=== PATIENT | female | born 1950 | race Caucasian/White ===

== ENCOUNTER → 2018-06-04 | Outpatient (CLI) | payer MEDICARE, OTHER ==
[2015-08-27 14:25] VITALS: BMI 29.9
[~2018-06-04] MED LIST: ACE325 PO; ARTHRITIS MED; ASPI-1121 PO; GABA-547 PO; INSU100I28; INSU100I28 SQ; LEVI SC; LEVO75TA73 PO
--- NOTE | 2018-06-04 18:09 | RADIOLOGY IMAGING REPORT ---
FACILITY: [facility] - [place], [place] PATIENT NAME: Helene Robles : 1950 MR: [id number] V: [id number] EXAM DATE: ORDERING PHYSICIAN: STEVE AIKEN TECHNOLOGIST: Location: [facility] Patient: Helene Robles : 1950 Visit/Account:[id number] Date of Sevice: 06/04/2018 MRI right shoulder Indication: Right shoulder pain after fall. Comparison: None available. Technique: Multiplanar multisequence MR images were obtained through the right shoulder. Findings: Rotator cuff: Massive rotator cuff tear with complete tearing supraspinatus and infraspinous with medial retraction to the acromioclavicular joint. Significant fatty atrophy supraspinatus and infraspinatus. Overall, there is evidence of approximately 3.8 cm of medial retraction. Teres minor is intact. There is moder ate partial tearing superior fibers of the subscapularis as well. Biceps tendon: Biceps is not seen within the superior aspect of the bicipital groove nor is the intra-articular port ion identified concerning for complete tear from the biceps labral anchor. AC joint and acromion: There are severe acromioclavicular degenerative changes and evident undersurface spurring. Labrum and capsular ligaments: Extensive complex degenerative tearing superior labrum. Capsular ligaments are intact with no evidence of focal abnormality. Bones and cartilage: No acute fracture or dislocation. Partial-thickness chondral loss throughout the glenohumeral joint cartilage. Effusion, bursitis: There is a small likely reactive effusion glenohumeral joint. Mild amount of fluid seen within the subacromial/subdeltoid bursa. IMPRESSION: 1. Severe AC joint degenerative changes. 2. Massive rotator cuff tear with marked atrophy of the supraspinatus and infraspinatus. Report Dictated By: Nick Sesay MD at 06/04/2018 6:01 PM Report E-Signed By: Nick Sesay MD at 06/04/2018 6:06 PM [id number]
== END ==
LOC: MRI 12:33
PROVIDERS: ATTEND Family Medicine
DX: M19.011 Primary osteoarthritis, right shoulder (principal); M75.101 Unspecified rotator cuff tear or rupture of right shoulder, not specified as traumatic